=== PATIENT | female | born 1995 ===

== ENCOUNTER 2018-06-03 19:24 | Emergency (ER) | payer MEDICAID ==
[2018-06-03 19:25] VITALS: BMI 32.1
[2018-06-03 19:37] VITALS: RESP 18; TEMP 98.3; O2SAT 98
[2018-06-03 21:33] LABS: BASO % 0.5 % (0.0-2.0); EOS # 0.1 K/uL (0.0-0.7); EOS % 1.1 % (0.0-4.0); HEMOGLOBIN 12.8 g/dL (12.0-16.0); LYMPH # 2.4 K/uL (1.0-4.3); MEAN CELL VOLUME 99.4 fl (81.0-99.0); MEAN CORPUSCULAR HGB CONC 34.3 g/dL (33.0-37.0); MONO # 0.6 K/uL (0.0-0.8); MONO % 7.7 % (0.0-10.0); NEUT # 4.9 K/uL (1.8-7.0); NEUT % 60.7 % (50.0-75.0); RBC 3.77 Mil/uL (3.80-5.20); RED CELL DISTRIBUTION WIDTH 13.8 % (11.5-14.5)
--- NOTE | 2018-06-03 21:36 | ED PDOC ---
HPI: Abdomen Time Seen by Provider: 06/03/18 20:07 Chief Complaint (Nursing): Abdominal Pain Chief Complaint (Provider): Abdominal Pain History Per: Patient History/Exam Limitations: no limitations Onset/Duration Of Symptoms: Days (x4) Current Symptoms Are (Timing): Still Present Additional Complaint(s): 23 year old female (approximately 16 weeks based on LMP 02/10) with no significant past medical history presents to the ED for intermittent, stabbing lower abdominal pain onset 4 days ago. Patient reports she has not had care yet for this or taken any medications for pain. She states this is her third - she has had 2 full term pregnancies without complications delivered via 2 C-Sections. Patient denies fever, chills, nausea, vomiting, diarrhea, urinary symptoms, vaginal bleeding, shortness of breath, cough, vaginal discharge, vaginal bleeding, or any other medical complaints. PMD: Dr. Parekh at the Clinic Abnormal Vaginal Bleeding: No Past Medical History Reviewed: Historical Data, Nursing Documentation, Vital Signs Vital Signs: Last Vital Signs Temp 98.3 F 06/03/18 19:33 Pulse 73 06/04/18 00:11 Resp 18 06/03/18 19:33 BP 108/71 06/04/18 00:11 Pulse Ox 98 06/06/18 06:08 - Medical History PMH: No Chronic Diseases - Surgical History Surgical History: (x2) - Family History Family History: States: Unknown Family Hx - Social History Current smoker - smoking cessation education provided: No Ex-Smoker (has not smoked in the last 12 months): No Alcohol: None Drugs: Denies - Home Medications Home Medications: Ambulatory Orders Medication Instructions Recorded Acetaminophen [Acetaminophen 8 650 mg PO Q8 PRN #21 tablet.er 06/04/18 Hour] - Allergies Allergies/Adverse Reactions: Allergies Allergy/AdvReac Type Severity Reaction Status Date / Time No Known Allergies Allergy Verified 10/30/16 12:32 Review of Systems ROS Statement: Except As Marked, All Systems Reviewed And Found Negative Gastrointestinal: Positive for: Abdominal Pain (lower) Physical Exam - Reviewed Nursing Documentation Reviewed: Yes Vital Signs Reviewed: Yes - Physical Exam Comments: GENERAL APPEARANCE: Patient is awake, alert, oriented x 3, in no acute distress. SKIN: Warm, dry; (-) cyanosis. EYES: (-) conjunctival pallor, (-) scleral icterus. ENMT: Mucous membranes moist. NECK: Supple, FROM CHEST AND RESPIRATORY: (-) rales, (-) rhonchi, (-) wheezes; breath sounds equal bilaterally. Respirations even and nonlabored, speaking in full sentences. HEART AND CARDIOVASCULAR: (-) irregularity ABDOMEN AND GI: Soft, (-) distention. Bowel sounds active x4; [+] tenderness in RLQ (-) guarding, (-) rebound, (-) palpable masses, (-) CVA tenderness, (+) gravid uterus. EXTREMITIES: (-) deformity NEURO AND PSYCH: Mental status as above; (-) focal findings. (-) facial asymmetry. Gait steady, speech clear. - Laboratory Results Result Diagrams: 18 21:28 06/03/18 21:28 - ECG O2 Sat by Pulse Oximetry: 98 (RA) Pulse Ox Interpretation: Normal Medical Decision Making Medical Decision Making: Time: 21:08 Initial Impression: Abdominal pain and Initial Plan: --Beta-HCG Quant --CMP --Urine preg --Urine dip --CBC with differentials --Tylenol 650 mg PO --Urine culture --Urinalysis --Abdomen US --Upon reviewing old charts, patient noted to have O+ blood 2230 CBC, CMP, and U/A unremarkable. Beta Quant: 53756.00 Pending U/S evaluation. 2300 Patient in U/S 2346 US RESULTS FINDINGS: Fetus: Single viable intrauterine . Gestational age: The composite gestational age is 16 weeks 6 days. The estimated date of delivery is 11/12/18. Position: Breech presentation. Heart rate: heart rate of 146 beats per minute. Biometrics: Femur length 2.5 CM, 17 weeks 4 days. 90.5 percentile. Abdominal circumference 10.3 cm, 16 weeks 2 days. 55 percentile. Biparietal diameter 3.5 cm, 16 weeks 5 days. 77th percentile. Head circumference 12.8 , 16 weeks 4 days. 57th percentile. The cephalic index and ratio of the head circumference to abdominal circumference are within normal limits. The femur length to head circumference ratio is elevated. Estimated weight: 171 g or 6 ounce. Placenta: Posterior/fundal placenta. Cervix: Erroneously elongated, closed cervix. Adnexa: The ovaries are not identified. Free fluid: No cul-de-sac fluid. IMPRESSION: Single viable intrauterine of 16 weeks 6 days. The estimated date of delivery is 11/12/18. Thank you for allowing us to participate in the care of your patient. Dictated and Authenticated by: Reanna Nash MD 06/03/2018 11:46 PM Eastern Time ([place] & [place]) 0005 On re-evaluation, patient reports improvement of symptoms. On exam, patient remains AAOx3, in no acute distress. Lungs clear to auscultation, cardiac RRR, abdomen soft, non-tender, repeat neuro exam shows no focal findings. VSS, stable for discharge. Lab/Diagnostic results d/w the patient in great detail. Diagnosis of abdominal pain in second trimester of d/w the patient. Based on history, exam and diagnostic results, plan will be for outpatient follow up with OBGYN. Continue vitamins. Patient instructed to follow-up with pmd / referral provided / the clinic in 1- 2 days without fail. Advised to take medication as prescribed. Return to the emergency room at any time for any new or worsening symptoms. Patient states she fully agrees with and understands discharge instructions. States that she agrees with the plan and disposition. Verbalized and repeated discharge instructions and plan. I have given the patient opportunity to ask any additional questions. Scribe Attestation: Documented by Lay Bellamy, acting as a scribe for Lisa Rice PA-C Provider Scribe Attestation: All medical record entries made by the Scribe were at my direction and personally dictated by me. I have reviewed the chart and agree that the record accurately reflects my personal performance of the history, physical exam, medical decision making, and the department course for this patient. I have also personally directed, reviewed, and agree with the discharge instructions and disposition. Disposition - Clinical Impression Clinical Impression: Abdominal pain during in second trimester - Patient ED Disposition Is Patient to be Admitted: No Counseled Patient/Family Regarding: Studies Performed, Diagnosis, Need For Followup, Rx Given - Disposition [facility]errals[facility]Outside] Disposition: Routine/Home Disposition Time: 00:06 Condition: IMPROVED Additional Instructions: La atencin mdica de emergencia que recibi hoy se dirigi a los sntomas agudos de presentacin. Si le prescribieron algn medicamento, por favor ll armen y d al indicado. Hina sntomas pueden tardar varios cormier en resolverse. Regrese al Departamento de Emergencia en cualquier momento si los sntomas empeoran, no mejoran o si surge algn otro problema. Comunquese con rodríguez mdico en 2 cormier para rupal reevaluacin y seguimiento / o llame a gio de los mdicos / clnicas a los que appiah referido y que figura en el formulario de Informacin de visitas del paciente que se incluye en rodríguez paquete de terrence. Lleve todos los documentos que recibi al momento del terrence junto con los medicamentos a rodríguez visita de seguimiento. Nuestro tratamiento no puede reemplazar la atencin mdica en curso por parte de un proveedor de atencin primaria (PCP) fuera del departamento de emergencias. Prescriptions: Acetaminophen [Acetaminophen 8 Hour] 650 mg PO Q8 PRN #21 tablet.er PRN Reason: Pain, Moderate (4-7) Instructions: Acute Abdomen (Belly Pain), Adult (DC), - The Fourth Month Forms: Teburu (Lao) Print Language: NEPALI - POA Present On Arrival: None Results - Lab Results Lab Results: 06/03/18 06/03/18 06/03/18 21:28 21:28 21:28 WBC RBC Hgb Hct MCV MCH MCHC RDW Plt Count MPV Neut % (Auto) Lymph % (Auto) [place] % (Auto) Eos % (Auto) Baso % (Auto) Neut # (Auto) Lymph # (Auto) [place] # (Auto) Eos # (Auto) Baso # (Auto) Sodium 138 Potassium 3.9 Chloride 103 Carbon Dioxide 29 Anion Gap 10 BUN 7 Creatinine 0.4 L Est GFR ( Amer) > 60 Est GFR (Non-Af Amer) > 60 Random Glucose 90 Calcium 9.8 Total Bilirubin 0.2 AST 27 ALT 23 Alkaline Phosphatase 46 Total Protein 7.0 Albumin 4.1 Globulin 2.9 Albumin/Globulin Ratio 1.4 Beta HCG, Quant 74762.00 Urine Color Yellow Urine Clarity Turbid Urine pH 7.0 Ur Specific [place] 1.021 Urine Protein Negative Urine Glucose (UA) 50 Urine Ketones Negative Urine Blood Negative Urine Nitrate Negative Urine Bilirubin Negative Urine Urobilinogen 0.2-1.0 Ur Leukocyte Esterase Neg Urine RBC (Auto) 2 Urine Microscopic WBC 1 Amorphous Sediment Occ H Urine Bacteria Rare 06/03/18 21:28 WBC 8.0 RBC 3.77 L Hgb 12.8 Hct 37.4 MCV 99.4 H MCH 34.0 H MCHC 34.3 RDW 13.8 Plt Count 190 MPV 10.0 Neut % (Auto) 60.7 Lymph % (Auto) 30.0 [place] % (Auto) 7.7 Eos % (Auto) 1.1 Baso % (Auto) 0.5 Neut # (Auto) 4.9 Lymph # (Auto) 2.4 [place] # (Auto) 0.6 Eos # (Auto) 0.1 Baso # (Auto) 0.0 Sodium Potassium Chloride Carbon Dioxide Anion Gap BUN Creatinine Est GFR ( Amer) Est GFR (Non-Af Amer) Random Glucose Calcium Total Bilirubin AST ALT Alkaline Phosphatase Total Protein Albumin Globulin Albumin/Globulin Ratio Beta HCG, Quant Urine Color Urine Clarity Urine pH Ur Specific [place] Urine Protein Urine Glucose (UA) Urine Ketones Urine Blood Urine Nitrate Urine Bilirubin Urine Urobilinogen Ur Leukocyte Esterase Urine RBC (Auto) Urine Microscopic WBC Amorphous Sediment Urine Bacteria
[2018-06-03 21:44] LABS: ALB/GLOB RATIO 1.4 (1.0-2.1); ALBUMIN 4.1 g/dL (3.5-5.0); ALT/SGPT 23 U/L (9-52); AST/SGOT 27 U/L (14-36); BLOOD UREA NITROGEN 7 mg/dl (7-17); CALCIUM 9.8 mg/dL (8.4-10.2); GFR AFRICAN-AMERICAN > 60; GFR NON-AFRICAN AMERICAN > 60
[2018-06-03 21:49] LABS: URINE AMORPHOUS SEDIMENT OCC /ul (<OCC); URINE BACTERIA RARE (<OCC); URINE BILIRUBIN NEGATIVE (NEGATIVE); URINE BLOOD NEGATIVE (NEGATIVE); URINE CLARITY TURBID (Clear); URINE COLOR YELLOW (YELLOW); URINE GLUCOSE (UA) 50 mg/dL (Normal); URINE LEUKOCYTE ESTERASE NEG Leu/uL (Negative); URINE PROTEIN NEGATIVE (NEGATIVE); URINE UROBILINOGEN 0.2-1.0 mg/dL (0.2-1.0)
[2018-06-04 00:13] VITALS: BP 108/71; PULSE 73
--- NOTE | 2018-06-04 12:14 | US ---
Date of service: 06/03/2018 PROCEDURE: Limited obstetrical ultrasound examination HISTORY: confirm IUP, right sided abd pain COMPARISON: Not available TECHNIQUE: Transabdominal FINDINGS: There is a single live intrauterine gestation in variable presentation. The heart rate is 146 beats per minute. A grossly normal quantity of amniotic fluid is present. A posterior placenta is identified. The placenta traverses the internal cervical os consistent with placenta previa. biometry yields a gestational age of 16 weeks 6 days. The AKHIL by ultrasound of 11/12/2018. anatomy was not evaluated at this time. The ovaries were not visualized. No adnexal masses were seen. The cervix is closed and 6-8 cm in length. This is likely artifactual in measurement. IMPRESSION: Limited examination. Single live intrauterine gestation of approximately 16 weeks 6 days. Placenta previa. Normal amniotic fluid volume. Variable presentation. Posterior placenta. The preliminary findings for this examination were reported by [facility] at 11:46 p.m. on 06/03/2018.. There is discordance of this report with the preliminary findings. The presence of placenta previa was not described in the preliminary report of this examination.
== END 2018-06-04 00:13 | disposition home or self-care (01) ==
LOC: H.ER 19:24
DX: O26.892 Other specified pregnancy related conditions, second trimester (principal); Z3A.16 16 weeks gestation of pregnancy

== ENCOUNTER 2018-11-11 06:58 | Inpatient (IN) | payer MEDICAID ==
[2018-11-11 07:21] VITALS: BMI 30.9
[2018-11-11] MEDS ORDERED: Lactated Ringer's 1,000 ML IV ONE ×2 (07:40)
[2018-11-11] MEDS ORDERED: Lactated Ringer's 1,000 ML IV SCH (07:45)
[2018-11-11] MEDS ORDERED: OXYTOCIN/0.9 % NS 20 UNIT/1,000 ML BAG IV ONE (08:00)
[2018-11-11] MEDS ORDERED: ceFAZolin 2 GM in Sodium Chloride 0.9% 100 ML IVPB ONE (08:00)
[2018-11-11] MEDS ORDERED: Oxytocin 30 UNIT 30 UNITS/500 ML BAG IV ONE (08:00)
[2018-11-11 08:39] LABS: BASO % 0.4 % (0.0-2.0); EOS # 0.1 K/uL (0.0-0.7); EOS % 0.9 % (0.0-4.0); HEMOGLOBIN 11.3 g/dL (12.0-16.0); LYMPH # 2.4 K/uL (1.0-4.3); LYMPH % 22.4 % (20.0-40.0); MEAN CORPUSCULAR HEMOGLOBIN 28.3 pg (27.0-31.0); MEAN CORPUSCULAR HGB CONC 31.8 g/dL (33.0-37.0); MEAN PLATELET VOLUME 9.5 fl (7.2-11.7); MONO # 0.7 K/uL (0.0-0.8); MONO % 6.6 % (0.0-10.0); NEUT # 7.4 K/uL (1.8-7.0); NEUT % 69.7 % (50.0-75.0); RBC 3.98 Mil/uL (3.80-5.20); RED CELL DISTRIBUTION WIDTH 16.5 % (11.5-14.5); WHITE BLOOD COUNT 10.6 K/uL (4.8-10.8)
--- NOTE | 2018-11-11 13:16 | OBADHP ---
Datetime: 11/11/2018 13:11 Admit Comment, IP Provider: Patient is a @ 39.1 wks for repeat . Patient has a hist ory of 2 prior surgeries, no antepartum risk factors, no medical problems, no other surgeries. Rina burnett has no allergies, only takes vitamins. Patient for scheduled repeat surgery today, no labo r complaints VE=deffered FHR = 140 mod princess, +accels, no decels TOCO = monique irregularly A/P 1. Patient evaluated, IVF started, CBC, type and cross 2. Patient consented for repeat surgery, risks/benefits reviewed and patient verbalized understand ing with help of tobacco dipper, signed informed consent 3. Patient given Ancef before surgery, SCDs placed bilateally 4. WIll proceed to OR when available Pelvic Type - PN: Adequate Extremities - PN: Normal Abdomen - PN: Normal Back - PN: Normal Breast - PN: Normal Lungs - PN: Normal Heart - PN: Normal Thyroid - PN: Normal Neurologic - PN: Normal HEENT - PN: Normal General - PN: Normal FHR - Baseline A Provider: 140 Contraction Comments Provider: occasional Vital Signs Provider: Reviewed; Within Normal Limits IP Chief Complaint: Scheduled Section NICHD Variability Prov Fetus A: Moderate 6-25bpm NICHD Accel Fetus A IP Provider: [id number] NICHD Decel Fetus A IP Provider: None Genitourinary Exam: Normal DTRs - PN: Normal EGA AdmitDate IP: 39.1 IP Adm Impression: Term, intrauterine IP Admit Plan: Admit to unit; Initiate Section protocol
[2018-11-11] MEDS ORDERED: Oxycodone/Acetaminophen 5/325 mg Tab PO PRN ×3 (14:56→17:50)
--- NOTE | 2018-11-11 15:05 | OBDS ---
DELIVERY PERSONNEL Delivery Doctor: Jamel Tejada MD Insurance Claims Assistant: Rachael Fregoso RN Anesthesiologist: Pérez Daniel MD MATERNAL INFORMATION Delivery Anesthesia: Spinal Medications in Delivery: ancef 2 grams, pitocin 30 units/500 ml, pitocin 20 units/1000ml Estimated Blood Loss (ml): 800 Placenta Cultured: No Maternal Complications: None Provider Comments: Surgeon: Dr. Tejada Orientation And Mobility Instructor: Dr. Claudia Calix Pre-op Dx: Term , PRevious C-sectionx 2 Surgery: Repeat Post-op: Same FIndings: Live female infant 7lbs 10oz, 9/9, cephalic, clear fluid, moderate about of adhesions, g rossly nml tubes, ovaries, placenta, uterus Anesthesia: SPinal by DR. Daniel EBL: 800mL UO: 410mL TOtal fluid input: 1900mL COmplications: None Condition: Stable Pathology: COrd blood, placenta LABOR SUMMARY EDC: 11/17/2018 00:00 No. Babies in Womb: 1 Attempted: No Labor Anesthesia: Intrathecal LABOR INFORMATION Reason for Induction: Not Applicable Onset of Labor: 11/11/2018 02:30 Oxytocin: N/A Group B Beta Strep: Negative Antibiotics # of Doses: 0 Antibiotics Time of Last Dose: n/a Steroids Given: None Reason Steroids Not Administered: Not Applicable MEMBRANES Membranes Rupture Method: Artificial Rupture of Membranes: 11/11/2018 14:03 Length of Rupture (hrs): 0.02 Amniotic Fluid Color: Clear Amniotic Fluid Amount: Small Amniotic Fluid Odor: None STAGES OF LABOR Stage 3 hrs: 0 Stage 3 min: 1 Total Time in Labor hrs: 11 Total Time in Labor min: 35 CSECTION DELIVERY Primary Indication: Repeat Elective CSection Urgency: Elective CSection Incidence: Repeat Labor: No Labor Elective: Elective CSection Incision: Classical BABY A INFORMATION Delivery Date/Time: 11/11/2018 14:04 Method of Delivery: Born in Route : No : N/A Forceps: N/A Vacuum Extraction: N/A Shoulder Dystocia : No SHOULDER DYSTOCIA BABY A Infant Delivery Date/Time: 11/11/2018 14:04 PRESENTATION/POSITION BABY A Presentation: Cephalic Cephalic Presentation: Vertex Breech Presentation: N/A PLACENTA INFORMATION BABY A Placenta Delivery Time : 11/11/2018 14:05 Placenta Method of Delivery: Spontaneous Placenta Status: Delivered SCORES BABY A Heart Rate 1 min: >100 bpm Resp Effort 1 min: Good Cry Reflex Irritability 1 min: Cough or Sneeze or Pulls Away Muscle Tone 1 min: Active Motion Color 1 min: Body [place], Extremities Blue Resuscitation Effort 1 min: N/A SCORE 1 MIN: 9 Heart Rate 5 min: >100 bpm Resp Effort 5 min: Good Cry Reflex Irritability 5 min: Cough or Sneeze or Pulls Away Muscle Tone 5 min: Active Motion Color 5 min: Body [place], Extremities Blue Resuscitation Effort 5 min: N/A SCORE 5 MIN: 9 INFANT INFORMATION BABY A Gestational Age at Delivery: 39.1 Gestational Status: Term Outcome : Liveborn Infant Condition : Stable Sex: Female IDENTIFICATION/MEDS BABY A ID Band Number: [id number] ID Band Location: Left Leg; Left Arm WEIGHT/LENGTH BABY A Infant Birthweight (gms): 3450 Weight (lb): 7 Weight (oz): 10 CORD INFORMATION BABY A No. Cord Vessels: 3 Nuchal Cord : Around Neck x1, Loose Cord Blood Taken: Yes Suction: None
[2018-11-11] MEDS ORDERED: Simethicone 80 mg Chewtab PO SCH (16:00)
[2018-11-11] MEDS ORDERED: DiphenhydrAMINE 50 mg/ml Inj IVP PRN ×2 (16:37→17:50)
[2018-11-11] MEDS: Lactated Ringer's 1,000 ML IV SCH (21:07)
[2018-11-11] MEDS: Simethicone 80 mg Chewtab PO SCH (23:24)
--- NOTE | 2018-11-12 01:41 | OP ---
PROCEDURE DATE: 11/11/2018 SURGEON: Janessa Tejada MD MED SURG NURSE: Dr. Quirino Calix, OB fellow PREOPERATIVE DIAGNOSES: 1. Term . 2. Previous section x2. POSTOPERATIVE DIAGNOSES: 1. Term . 2. Previous section x2. PROCEDURE: Repeat low transverse section. FINDINGS: Live female , 7 pounds 10 ounces, 9 and 9 Apgars, cephalic presentation. Clear fluid. Moderate amount of adhesions from peritoneum to uterus or rather from uterus to peritoneum. Grossly normal tubes, ovaries, placenta, and uterus otherwise. ANESTHESIA: Spinal by Dr. Daniel. ESTIMATED BLOOD LOSS: 800 mL. URINE OUTPUT: 410 mL. TOTAL FLUID INPUT: 1900 mL. COMPLICATIONS: None. CONDITION: Stable. PATHOLOGY SPECIMEN: Cord blood and placenta. INDICATIONS: This is a 23-year-old G3, P2-0-0-2 at 39 plus weeks who had history of two previous C sections and was advised to proceed with a repeat C section for delivery of this baby. The patient presented tarsha-op for scheduled repeat . Advised the risks and benefits of procedure including risk of bleeding, infection, damage to surrounding organs. The patient verbalized understanding and signed informed consent with the help of a warehouse worker 2nd shift. DESCRIPTION OF PROCEDURE: The patient was taken to the OR. Ancef was given preoperatively. SCDs were placed bilaterally. The patient was prepped and draped in the normal sterile fashion in dorsal supine position with leftward tilt. A noticeable keloid was noted at the site of previous entry into the abdomen. With the scalpel, we resected the keloid and then continued the scalpel to the subcutaneous fat down to the fascia. The fascia was incised in the midline. The incision was extended laterally with the aid of a scalpel and the cautery. We used Clementine clamps to tent up the inferior aspect of this incision, which we dissected off the underlying pyramidalis muscles with the cautery. In a similar fashion, we tented up the superior aspect of this incision, which we dissected off of the underlying rectus abdominis muscles with the cautery. The muscles were tented up at the midline with towel clamps, and with scalpel, we carefully dissected to the midline and entered the peritoneal cavity. Moderate amount of adhesions were noted between the peritoneum and the uterus with careful dissection. With the use of the Vieira scissors and Metzenbaum scissors, we were able to extend the incision superiorly and then inferiorly as well as dissect away some of the peritoneal adhesions. The lower uterine segment was clearly visualized. Bladder blade was inserted. The lower uterine segment was incised in a transverse fashion with the aid of the scalpel. Uterine cavity was entered. Membranes were ruptured. Clear fluid was noted. Infant was delivered in cephalic presentation atraumatically followed by shoulders and the rest of the infant atraumatically. Mouth and nose were suctioned. Cord was clamped and cut. was handed off to awaiting pediatric team. Cord blood was obtained. Placenta was extracted manually. Uterus was exteriorized, cleared off all clots. Uterine incision was repaired with 0 Vicryl stitch, and 0 Monocryl stitch was used to imbricate small spots that were bleeding. Overall, the hysterotomy site appeared to be hemostatic. We returned the uterus to the abdomen, cleared the gutters of all clots. The peritoneum and muscle were reapproximated with a 2-0 Monocryl stitch. There were some spots on the muscle that had to be imbricated, that had to be reinforced in order to tamponade, and certain spots of her bleeding were cauterized with the Bovie. Overall, the muscle was hemostatic. We closed this fascia with an 0 Vicryl stitch. Bleeders were cauterized and the subcutaneous fat with cautery and was reapproximated with a plain gut suture. The skin was closed with a 4-0 Monocryl. Sponge, lap and needle counts were correct x4. The patient was taken to the recovery room in stable condition. No other complications. Janessa Tejada MD CLARY
[2018-11-12] MEDS: Simethicone 80 mg Chewtab PO SCH ×4 (03:45→22:58)
[2018-11-12] MEDS: Lactated Ringer's 1,000 ML IV SCH ×2 (06:40→09:50)
[2018-11-12 07:25] LABS: HEMOGLOBIN 10.9 g/dL (12.0-16.0); MEAN CORPUSCULAR HEMOGLOBIN 28.5 pg (27.0-31.0); RBC 3.83 Mil/uL (3.80-5.20); RED CELL DISTRIBUTION WIDTH 16.7 % (11.5-14.5); WHITE BLOOD COUNT 11.1 K/uL (4.8-10.8)
--- NOTE | 2018-11-12 08:32 | OBPPN ---
Datetime: 11/12/2018 07:28 PP Pain Prov: Within normal limits PP Nausea Prov: Denies PP Flatus Prov: Yes PP BM Prov: No PP Breasts Prov: Not Done PP Heart Prov: Normal PP Lungs Prov: Normal PP Abdomen/Uterus Prov: Normal PP Lochia Prov: Not Done PP Vulva/Perineum Prov: Not Done PP CVA Tenderness Prov: Normal PP Extremities Prov: Normal PP C/S Incision Prov: Normal PP Progress Prov: Normal PP Comments Phys Exam Prov: Fundus firm Incision clean/dry/intact PP Impression Prov: Normal progression PP Plan Prov: Continue present management PP Progress Note Prov: 23y/o , 39.1 wks S/P Repeat C section POD1 Patient seen and evaluated at bedside. Reports mild abdominal pain which is well controlled with p ain medications. Mena D/C, dressing present, to be removed at 14:00 hr 11/12/18. Pt currently on regu lar diet tolerating well. Lochia similar to menses. Reports passing flatus but no BM yet. Denies feve r, chills, nausea, vomiting, diarrhea, CP, SOB. w/o difficulties. O: VSS GEN: Patient is comfortable. In no acute distress. Cardio: S1S2, no murmurs, gallops or rubs. Lungs: clear air entry sounds b/l, no wheezing Abdomen: BS+, tenderness to palpation. Dressing present, Incision C/D/I, Uterus is firm and at the level of the umbilicus. EXT: No edema, calves non-tender to palpation, Judson's Negative Assessment/Plan: 23 y/o , 39.1 S/P Repeat C section on POD1. - SCDs for DVT prophylaxis, encouraged ambulating - Percocet 5/325 and Ibuprofen 600 mg for pain - Colace BID for constipation -Simethicone 80 mg Q6 hr - Continue to encourage and ambulating - f/u CBC post op: Pending - Anticipated D/C on 11/14/18 --- Carlo Del Real MD PGY-[address] Tejada: I have evaluated the patient independently and I agree with the above Vital Signs Provider PP: Reviewed; Within Normal Limits
[2018-11-12] MEDS ORDERED: Multivitamin With Minerals Tab PO SCH (09:00)
[2018-11-12] MEDS: Oxycodone/Acetaminophen 5/325 mg Tab PO PRN ×2 (14:44→20:55)
[2018-11-12] MEDS: Multivitamin With Minerals Tab PO SCH (14:44)
[2018-11-13] MEDS: Simethicone 80 mg Chewtab PO SCH ×4 (03:56→21:30)
--- NOTE | 2018-11-13 09:00 | OBPPN ---
Datetime: 11/13/2018 07:14 PP Pain Prov: Within normal limits PP Nausea Prov: Denies PP Flatus Prov: Yes PP BM Prov: Yes PP Heart Prov: Normal PP Lungs Prov: Normal PP Abdomen/Uterus Prov: Normal PP Lochia Prov: Normal PP Extremities Prov: Normal PP Impression Prov: Normal progression PP Plan Prov: Continue present management PP Progress Note Prov: 24 y/o , POD2 s/p was seen and examined this AM. She is tolerat ing PO regular diet w/o nausea or vomitting. Pain is well controlled. She is w/o compla ints. Lochia like menses.+Flatus, +BM . She is ambulating and experiencing minimal lower abdominal pa in. She denies f/c/n/v/d/cp or sob. VS: wnl Gen: awake laying in bed breathing comfortably Cardio: s1s2, no murmurs, rubs or gallops Resp: cta b/l Abd: BS+, soft, minimal lower abdominal tenderness, fundus @ umbilicus Ext: calves nontender, nonedematous A/P: 24 y/o , POD2 s/p - Continue SCDs for DVT prophylaxis. -Continue to encourage ambulation. - Continue pain management. - Continue to encourage -Anticipated Discharge 11/14/2018 -Case discussed with attending Veronica Sewell, PGY-1, FM The patient was seen with the resident I agree with the nadege Vital Signs Provider PP: Reviewed; Within Normal Limits
[2018-11-13] MEDS: Multivitamin With Minerals Tab PO SCH (09:49)
[2018-11-14] MEDS: Simethicone 80 mg Chewtab PO SCH (03:30)
[2018-11-14] MEDS: Multivitamin With Minerals Tab PO SCH (09:18)
--- NOTE | 2018-11-14 10:38 | OBPPN ---
Datetime: 11/14/2018 07:15 PP Pain Prov: Within normal limits PP Nausea Prov: Denies PP Flatus Prov: Yes PP BM Prov: Yes PP Breasts Prov: Not Done PP Heart Prov: Normal PP Lungs Prov: Normal PP Abdomen/Uterus Prov: Normal PP Lochia Prov: Normal PP Vulva/Perineum Prov: Not Done PP CVA Tenderness Prov: Not Done PP Extremities Prov: Normal PP C/S Incision Prov: Normal PP Progress Prov: Normal PP Impression Prov: Normal progression PP Plan Prov: Discharge PP Progress Note Prov: 24 y/o , POD3 s/p seen and examined at bedside. Ambulating, to lerating PO, lochia like menses, no difficulties. VS: wnl Gen: awake laying in bed breathing comfortably Cardio: s1s2, no murmurs, rubs or gallops Resp: cta b/l Abd: BS+, soft, minimal lower abdominal tenderness, fundus @ umbilicus Ext: calves nontender, nonedematous A/P: 24 y/o , POD3 s/p -Continue to encourage ambulation. - Continue pain management. - Continue to encourage - Discharge today -Case discussed with attending -uma Hernández Patient seen and examined by me this am. Agree with above note. RTC in 1 wk for wound check --Dr. Gonzales Vital Signs Provider PP: Reviewed; Within Normal Limits
--- NOTE | 2018-11-14 10:40 | OBDCSUM ---
Datetime: 11/14/2018 08:55 Discharged to, Provider: Home Follow up at, Provider: [facility] Disch Instr Activity: Normal activity Disch Instr Diet: Regular Discharge Instructions, Provider: Routine instructions given Discharge Diagnosis, Provider: Term Delivered Discharge Time: 11/14/2018 10:00 Follow up in weeks, Provider: 1 wk for wound check Disch Referrals: None Contraception discussed, Prov: Yes Disch Activity Restrictions: No exercising; No lifting; Nothing in vagina - [place], tampons, do jaclyn Discharge Comment, Provider: Discharge Summary DOA: 11/11/2018 EGA: 39.1 Diagnosis: Repeat Summary of : 23 y/o s/p repeat L_D summary: Patient tolerated surgery well. Pain was well controlled with pain meds. D/c ledbetter, keyur ressing removed, incision site healing well, no exudate seen, dry and intact. No nausea; advised to a dvance diet as tolerated. Breast feeding without difficulty and supplementing with formula. Lochia is similar to menses volume. Reports she has been having regular bowel movements. DOL: 11/11/18 at 14:04 repeat NB: female : 06/[birth year] Weight: 3450g Lochia= menses, mild pain, controlled with medications Rubella immune, Tdap declined Blood type: O+, Antibody Neg CBC pp: 10.9/34.1 Discharge Date: 11/14/2018 Time 10:00 AM Discharge Instructions: -Encourage -Encourage ambulation -Percocet/Ibuprofen for pain PRN - ED precautions: If excessive bleeding, pain that does not get relief, fever >100.4, palpitations , SOB, CP or other concerning symptom go to the ED. - PT was urged if feeling sad, mood swing, depression, neglect of baby, suicidal thoughts, homicid al thoughts go to ER or call 911 for help - Pt should go to her Primary care doctor if have difficulty with breast feeding - F/U at [facility] in 1 week for wound check and 4-6 week for checkup. Elida Aljamal, pgyi Agree with above resident note --Dr. Ramos Contraception after Delivery: Undecided
[2018-11-14 22:13] VITALS: BP 109/62; PULSE 74; RESP 20; TEMP 98.6; O2SAT 99
== END 2018-11-14 15:00 | disposition home or self-care (01) | DRG 371 ==
LOC: H.EROB2 06:58 → H.L&D 07:40 → H.OB/GYN 17:39
PROVIDERS: ADMIT Obstetrics & Gynecology; ATTEND Obstetrics & Gynecology
PROC: 10D00Z1 Extraction of Products of Conception, Low, Open Approach (ICD-10-PCS; principal; 2018-11-11)
PROC: 4A1HXCZ Monitoring of Products of Conception, Cardiac Rate, External Approach (ICD-10-PCS; 2018-11-11)
DX: O34.211 Maternal care for low transverse scar from previous cesarean delivery (principal); N85.8 Other specified noninflammatory disorders of uterus; O69.81X0 Labor and delivery complicated by cord around neck, without compression, not applicable or unspecified; Z3A.39 39 weeks gestation of pregnancy; Z37.0 Single live birth